=== PATIENT | male | born 1980 | race African-American/Black ===

== ENCOUNTER 2016-10-16 22:04 | Emergency (ER) | payer SELFPAY ==
[~2016-10-16] VITALS: Ht 177.8 cm; Wt 123.0 kg
[~2016-10-16 22:04] MED LIST: GLUCTAB PO; blood pressure pill PO
[2016-10-16 22:16] VITALS: BP 157/86; PULSE 100; RESP 18; TEMP 98.7; O2SAT 96
[2016-10-16] MEDS ORDERED: CLINDAMYCIN INJ 900 MG in SODIUM CHLORIDE 0.9% INJ 100 ML IV ONE ×3 (22:30→22:45)
[2016-10-16] MEDS ORDERED: KETOROLAC TROMETHAMINE 30 MG/ML (IVP) VIAL IVP ONE (22:30)
[2016-10-16] MEDS ORDERED: SODIUM CHLORIDE 0.9% FLUSH 5 ML FLUSH IVF PRN (22:30)
--- NOTE | 2016-10-16 22:36 | PD ---
HPI Chief Complaint: Laceration/Skin Injury Time Seen by Provider: 22:27 Travel History International Travel<30 days: No Contact w/Intl Traveler<30days: No Traveled to known affect area: No History of Present Illness HPI 36-year-old Afro-[place] male presents the emergency department with puncture wound to the right distal little foot, from a nail from working on a roof. Patient states he immediately had pain and swelling between the third and fourth distal metatarsal. Patient sates the pain is gotten progressively worse since that first injury. Patient denies significant bleeding or drainage. He is a type II diabetic, currently not on any medications. He states his last tetanus shot was approximately 2 years ago. He denies any other symptoms or allergies to medications. [facility] Past Medical History Diabetes: Yes Social History Alcohol Use: No Tobacco Use: No Substance Use: No Allergies-Medications (Allergen,Severity, Reaction): Coded Allergies: No Known Allergies (Verified , 10/16/16) Reported Meds & Prescriptions Reported Meds & Active Scripts Active No Active Prescriptions or Reported Medications Review of Systems Except as stated in HPI: all other systems reviewed are Neg General / Constitutional: No: Fever Eyes: No: Visual changes HENT: No: Headaches Cardiovascular: No: Chest Pain or Discomfort Respiratory: No: Shortness of Breath Gastrointestinal: No: Abdominal Pain Genitourinary: No: Dysuria Musculoskeletal: No: Pain Skin: Positive Lesions (single puncture wound with pain and swelling to the right distal medial plantar surface), No Rash Neurologic: No: Weakness Psychiatric: No: Depression Endocrine: No: Polydipsia Hematologic/Lymphatic: No: Easy Bruising Physical Exam Narrative GENERAL: Patient appears in mild to moderate distress. SKIN: Warm and dry. Patient has obvious small puncture wound to the right distal plantar foot between the third and fourth distal metatarsals. No erythema or significant drainage. No active bleeding. HEAD: Atraumatic. Normocephalic. EYES: Pupils equal and round. No scleral icterus. No injection or drainage. ENT: No nasal bleeding or discharge. Mucous membranes pink and moist. Pharynx is clear. NECK: Trachea midline. No JVD. Supple nontender. CARDIOVASCULAR: Regular rate and rhythm. RESPIRATORY: No accessory muscle use. Clear to auscultation. Breath sounds equal bilaterally. MUSCULOSKELETAL: Extremities without clubbing, cyanosis, or edema. No obvious deformities. Patient has pain with palpation to the dorsal and plantar surfaces of the right distal foot. NEUROLOGICAL: Awake and alert. No obvious cranial nerve deficits. Motor grossly within normal limits. Five out of 5 muscle strength in the arms and legs. Normal speech. PSYCHIATRIC: Appropriate mood and affect; insight and judgment normal. Data Data Last Documented VS Vital Signs Date Time Temp Pulse Resp B/P Pulse Ox O2 Delivery O2 Flow Rate FiO2 10/16/16 22:16 98.7 100 18 157/86 96 Orders Foot, Complete (Cak3lix) (10/16/16 22:25) Iv Access Insert/Monitor (10/16/16 22:25) Sodium Chloride 0.9% Flush (Ns Flush) (10/16/16 22:30) Ketorolac Inj (Toradol Inj) (10/16/16 22:30) Levofloxacin (Levaquin) (10/16/16 22:45) Clindamycin Inj (Cleocin Inj) (10/16/16 22:45) MDM Medical Decision Making Medical Screen Exam Complete: Yes Emergency Medical Condition: Yes Differential Diagnosis Right foot puncture wound. Foreign body. Fracture. Cellulitis. Narrative Course Patient is medically stable at time of exam. IV access is obtained patient is given 30 mg Toradol IV as well as 900 mg clindamycin IV. The right foot is soaked in Betadine saline solution. X-ray of the right foot is obtained showing no foreign body, or free air or bony involvement per radiologist. Patient is given 750 mg Levaquin by mouth as well. Patient is given a prescription for Cipro 500 mg twice a day 7 days. Patient is given a prescription for Bactrim DS by mouth twice a day 7 days. Patient is given a prescription for ibuprofen 800 mg 3 times daily with food # 30. Patient should follow-up in 2 days for wound check to ensure no worsening symptoms as he is diabetic. Patient should follow-up sooner with any worsening symptoms as discussed. Diagnosis Primary Impression: Puncture wound of right foot Qualified Code: S91.331A - Puncture wound of right foot, initial encounter Referrals: Primary Care Physician Patient Instructions: General Instructions, Puncture Wound (ED) Additional Instructions: IV access is obtained patient is given 30 mg Toradol IV as well as 900 mg clindamycin IV. The right foot is soaked in Betadine saline solution. X-ray of the right foot is obtained showing no foreign body, or free air or bony involvement per radiologist. Patient is given 750 mg Levaquin by mouth as well. Patient is given a prescription for Cipro 500 mg twice a day 7 days. Patient is given a prescription for Bactrim DS by mouth twice a day 7 days. Patient is given a prescription for ibuprofen 800 mg 3 times daily with food # 30. Patient should follow-up in 2 days for wound check to ensure no worsening symptoms as he is diabetic. Patient should follow-up sooner with any worsening symptoms as discussed. Med/Other Pt SpecificInfo: Prescription(s) given Scripts No Active Prescriptions or Reported Meds Disposition: DISCHARGE HOME Condition: Stable Alex Morales Oct 16, 2016 22:36
[2016-10-16] MEDS ORDERED: LEVOFLOXACIN 750 MG TAB PO ONE (22:45)
--- NOTE | 2016-10-16 22:49 | RADHPO ---
EXAM DATE/TIME: 10/16/2016 22:35 [place] COMPARISON: No previous studies available for comparison. INDICATIONS : Right foot pain from nail. MEDICAL HISTORY : Diabetes mellitus type II. SURGICAL HISTORY : None. ENCOUNTER: Initial ACUITY: 1 day PAIN SCORE: 10/10 LOCATION: Between the 3rd and 4th distal metatarsals. FINDINGS: Three view examination of the right foot demonstrates soft tissue swelling without dislocation, or fr acture. The tarsal bones appear intact. The interphalangeal and metatarsophalangeal joints are int act. The calcaneus is intact. Bony mineralization is normal. CONCLUSION: Soft tissue swelling plantar aspect of the foot. No foreign body or fracture. Ran Hair MD on October 16, 2016 at 22:47 Board Certified Radiologist. This report was verified electronically.
[2016-10-16] MEDS ORDERED: BACT800T5 PO (22:51)
[2016-10-16] MEDS ORDERED: CIPR-9 PO (22:51)
[2016-10-16] MEDS ORDERED: IBUP800T23 PO (22:51)
[2016-10-16 23:38] VITALS: RESP 18
[2016-10-16 23:39] VITALS: BP 175/90
== END 2016-10-16 23:40 | disposition home or self-care (01) ==
LOC: PHEFT 22:04
DX: S91.331A Puncture wound without foreign body, right foot, initial encounter (principal); E11.9 Type 2 diabetes mellitus without complications; W45.0XXA Nail entering through skin, initial encounter; Y93.H3 Activity, building and construction
CPT/HCPCS: 73630; 96365; 96375; 99283; J1885

== ENCOUNTER 2016-11-04 02:26 | Emergency (ER) | payer SELFPAY ==
[~2016-11-04] VITALS: Ht 180.3 cm; Wt 126.7 kg
[~2016-11-04 02:26] MED LIST changes: +BACT800T5 PO; +CIPR-9 PO; -GLUCTAB PO; +IBUP800T23 PO; -blood pressure pill PO
[2016-11-04 02:31] VITALS: BP 158/96; PULSE 86; RESP 18; TEMP 98.3; O2SAT 96
[2016-11-04 04:00] VITALS: BP 175/84; PULSE 90; RESP 18; O2SAT 97
[2016-11-04] MEDS ORDERED: diphenhydrAMINE HCL 50 MG CAP PO ONE (04:00)
[2016-11-04] MEDS ORDERED: FAMOTIDINE 20 MG TAB PO ONE (04:00)
[2016-11-04] MEDS ORDERED: predniSONE 20 MG TAB PO ONE (04:00)
[2016-11-04] MEDS ORDERED: FAMO1TAB37 PO (04:57)
[2016-11-04] MEDS ORDERED: BENA25TA3 PO (04:57)
[2016-11-04] MEDS ORDERED: PRED20 PO (04:57)
--- NOTE | 2016-11-04 04:57 | PD ---
HPI Chief Complaint: Skin Problem Time Seen by Provider: 03:47 Travel History International Travel<30 days: No Contact w/Intl Traveler<30days: No Traveled to known affect area: No History of Present Illness HPI 36-year-old male who presents to emergency room for evaluation of bug bites. Patient reports that he thinks he was bit by a spider yesterday, reports that he noticed some swelling and bumps to his shoulder as well as arm. Patient reports that these problems are very itchy in nature, reports that he can't stop scratching them. Patient with no fevers or chills. Reports a tetanus is up-to-date. PFSH Past Medical History Diabetes: Yes Patient Takes Glucophage: No Diminished Hearing: No Immunizations Current: No Tetanus Vaccination: < 5 Years Influenza Vaccination: No Past Surgical History Surgical History: No Previous Surgery Social History Alcohol Use: No Tobacco Use: Yes Substance Use: No Allergies-Medications (Allergen,Severity, Reaction): Coded Allergies: No Known Allergies (Verified , 11/04/16) Reported Meds & Prescriptions Reported Meds & Active Scripts Active Pepcid (Famotidine) 20 Mg Tab 20 Mg PO BID 5 Days Benadryl Allergy (Diphenhydramine HCl) 25 Mg Tab 25 Mg PO Q6H PRN 5 Days Prednisone 20 Mg Tab 20 Mg PO BID 5 Days Review of Systems General / Constitutional: No: Fever Eyes: No: Visual changes HENT: No: Headaches Cardiovascular: No: Chest Pain or Discomfort Respiratory: No: Shortness of Breath Gastrointestinal: No: Abdominal Pain Genitourinary: No: Dysuria Musculoskeletal: No: Pain Skin: Positive Rash Neurologic: No: Weakness Psychiatric: No: Depression Endocrine: No: Polydipsia Hematologic/Lymphatic: No: Easy Bruising Physical Exam Narrative GENERAL: Well-nourished, well-developed patient. SKIN: Warm and dry. Patient with bug bites to his right shoulder and right arm and right chest wall - there are no signs of infection or underlying cellulitis HEAD: Normocephalic. EYES: No scleral icterus. No injection or drainage. NECK: Supple, trachea midline. No JVD or lymphadenopathy. CARDIOVASCULAR: Regular rate and rhythm without murmurs, gallops, or rubs. RESPIRATORY: Breath sounds equal bilaterally. No accessory muscle use. GASTROINTESTINAL: Abdomen soft, non-tender, nondistended. MUSCULOSKELETAL: No cyanosis, or edema. BACK: Nontender without obvious deformity. No CVA tenderness. Data Data Last Documented VS Vital Signs Date Time Temp Pulse Resp B/P Pulse Ox O2 Delivery O2 Flow Rate FiO2 11/04/16 04:00 90 18 175/84 97 Room Air 11/04/16 02:31 98.3 Orders Prednisone (Deltasone) (11/04/16 04:00) Diphenhydramine (Benadryl) (11/04/16 04:00) Famotidine (Pepcid) (11/04/16 04:00) [facility] Medical Decision Making Medical Screen Exam Complete: Yes Emergency Medical Condition: Yes Interpretation(s) Vital Signs Date Time Temp Pulse Resp B/P Pulse Ox O2 Delivery O2 Flow Rate FiO2 11/04/16 04:00 90 18 175/84 97 Room Air 11/04/16 02:31 98.3 86 18 158/96 96 Differential Diagnosis Bug bites Narrative Course Patient is a 36-year-old male who presents to emergency room for evaluation of bug bites. Patient reports that he thinks he was bit by a spider yesterday, reports that he noticed welts to his right shoulder, right arm and right chest wall. Patient reports that he can't seem to stop scratching his welts, patient here to have these areas evaluated. Patient does appear to have bite broussard to his shoulder, arm and chest wall. Patient has been scratching and has not taking any medications for antipruritics. There are no signs of infections at this time. We'll start patient on steroids, Benadryl as well as Pepcid. Signs and symptoms of when to return to the emergency room was reviewed with patient in detail. Patient's tetanus is up-to-date Diagnosis Primary Impression: Bug bite without infection Qualified Code: W57.XXXA - Bug bite without infection, initial encounter Patient Instructions: General Instructions Additional Instructions: Please return to the emergency room if you develops any signs of infection Please stop with primary care doctor and 2-3 days Return to the emergency room as needed Med/Other Pt SpecificInfo: Prescription(s) given Scripts Famotidine (Pepcid)20 Mg Tab20 Mg PO BID 5 Days Ref 0 Prov:Destinee Paulino DO 11/04/16 Diphenhydramine (Benadryl Allergy)25 Mg Tab25 Mg PO Q6H PRN (ALLERGIES) 5 Days Ref 0 Prov:Destinee Paulino DO 11/04/16 Prednisone 20 Mg Tab20 Mg PO BID 5 Days Ref 0 Prov:Destinee Paulino DO 11/04/16 Disposition: 01 DISCHARGE HOME Condition: Stable Destinee Paulino DO Nov 04, 2016 04:57
[2016-11-04 05:00] VITALS: BP 163/99; PULSE 82; RESP 18; O2SAT 95
== END 2016-11-04 05:15 | disposition home or self-care (01) ==
LOC: PHED 02:26
DX: B99.9 Unspecified infectious disease (principal); E11.9 Type 2 diabetes mellitus without complications; Z72.0 Tobacco use; W57.XXXA Bitten or stung by nonvenomous insect and other nonvenomous arthropods, initial encounter
CPT/HCPCS: 99282; J7512

== ENCOUNTER 2017-01-08 16:55 | Emergency (ER) | payer SELFPAY ==
[~2017-01-08] VITALS: Ht 180.3 cm; Wt 123.0 kg
[~2017-01-08 16:55] MED LIST changes: -BACT800T5 PO; +BENA25TA3 PO; -CIPR-9 PO; +FAMO1TAB37 PO; -IBUP800T23 PO; +PRED20 PO
[2017-01-08 16:56] VITALS: BP 161/93; PULSE 104; RESP 20; TEMP 98.4; O2SAT 99
[2017-01-08] MEDS ORDERED: SODIUM CHLOR 0.9% 1000 ML INJ 1,000 ML IV ONE (17:15)
--- NOTE | 2017-01-08 17:15 | PD ---
HPI Chief Complaint: Diabetic Time Seen by Provider: 17:03 Travel History International Travel<30 days: No Contact w/Intl Traveler<30days: No Traveled to known affect area: No History of Present Illness HPI 36-year-old male complains of elevated blood sugar. Patient has history hypertension and diabetes. Patient states that he was incarcerated between 2001 and 2014. Patient was diagnosed with hypertension and diabetes and was given medications while he was in long-term. Patient was released 2 years ago and has not had any medications since then. PFSH Past Medical History Diabetes: Yes Patient Takes Glucophage: No Diminished Hearing: No Hypertension: Yes Immunizations Current: No Influenza Vaccination: No ?: Not Social History Alcohol Use: No Tobacco Use: No Substance Use: No Allergies-Medications (Allergen,Severity, Reaction): Coded Allergies: No Known Allergies (Verified , 01/08/17) Reported Meds & Prescriptions Reported Meds & Active Scripts Active Pepcid (Famotidine) 20 Mg Tab 20 Mg PO BID 5 Days Benadryl Allergy (Diphenhydramine HCl) 25 Mg Tab 25 Mg PO Q6H PRN 5 Days Prednisone 20 Mg Tab 20 Mg PO BID 5 Days Review of Systems General / Constitutional: No: Fever Eyes: No: Visual changes HENT: No: Headaches Cardiovascular: No: Chest Pain or Discomfort Respiratory: No: Shortness of Breath Gastrointestinal: No: Abdominal Pain Genitourinary: No: Dysuria Musculoskeletal: No: Pain Skin: No Rash Neurologic: No: Weakness Psychiatric: No: Depression Endocrine: No: Polydipsia Hematologic/Lymphatic: No: Easy Bruising Physical Exam Narrative GENERAL: Well-nourished, well-developed patient. SKIN: Focused skin assessment warm/dry. HEAD: Normocephalic. EYES: No scleral icterus. No injection or drainage. NECK: Supple, trachea midline. No JVD or lymphadenopathy. CARDIOVASCULAR: Regular rate and rhythm without murmurs, gallops, or rubs. RESPIRATORY: Breath sounds equal bilaterally. No accessory muscle use. GASTROINTESTINAL: Abdomen soft, non-tender, nondistended. MUSCULOSKELETAL: No cyanosis, or edema. BACK: Nontender without obvious deformity. No CVA tenderness. Neurologic exam normal. Data Data Last Documented VS Vital Signs Date Time Temp Pulse Resp B/P Pulse Ox O2 Delivery O2 Flow Rate FiO2 01/08/17 16:56 98.4 104 20 161/93 99 Orders Complete Blood Count With Diff (01/08/17 17:11) Basic Metabolic Panel (Bmp) (01/08/17 17:11) Beta Hydroxybutyrate (Acetone) (01/08/17 17:11) Iv Access Insert/Monitor (01/08/17 17:11) Sodium Chlor 0.9% 1000 Ml Inj (Ns 1000 M (01/08/17 17:15) Labs Laboratory Tests Test 01/08/17 17:20 White Blood Count 6.8 TH/MM3 Red Blood Count 5.20 MIL/MM3 Hemoglobin 14.7 GM/DL Hematocrit 44.7 % Mean Corpuscular Volume 85.8 FL Mean Corpuscular Hemoglobin 28.3 PG Mean Corpuscular Hemoglobin 32.9 % Concent Red Cell Distribution Width 13.0 % Platelet Count 243 TH/MM3 Mean Platelet Volume 9.7 FL Neutrophils (%) (Auto) 54.3 % Lymphocytes (%) (Auto) 35.3 % Monocytes (%) (Auto) 6.2 % Eosinophils (%) (Auto) 1.7 % Basophils (%) (Auto) 2.5 % Neutrophils # (Auto) 3.7 TH/MM3 Lymphocytes # (Auto) 2.4 TH/MM3 Monocytes # (Auto) 0.4 TH/MM3 Eosinophils # (Auto) 0.1 TH/MM3 Basophils # (Auto) 0.2 TH/MM3 CBC Comment DIFF FINAL Differential Comment Sodium Level 136 MEQ/L Potassium Level 3.7 MEQ/L Chloride Level 101 MEQ/L Carbon Dioxide Level 25.3 MEQ/L Anion Gap 10 MEQ/L Blood Urea Nitrogen 20 MG/DL Creatinine 1.60 MG/DL Estimat Glomerular Filtration 59 ML/MIN Rate Random Glucose 480 MG/DL Calcium Level 8.5 MG/DL B-Hydroxybutyrate 0.12 MMOL/L [facility] Medical Decision Making Medical Screen Exam Complete: Yes Emergency Medical Condition: Yes Interpretation(s) 1824 PM. CBC within normal limit. Bicarbonate 25.3. 1845 PM. Glucose 480. BUN 20. Creatinine 1.6. Beta hydroxybutyrate 0.12. Differential Diagnosis Differential diagnosis including uncontrolled hypertension, hypertensive urgency , hypertensive crisis, hyperglycemia, DKA. Narrative Course 36-year-old male with elevated blood sugar. History of hypertension and diabetes and has not on medications for the past 2 years. 1857 PM. Accu-Chek blood sugar 372. Novolin R, 5 units IV given. Diagnosis Primary Impression: Hyperglycemia Additional Impressions: Renal insufficiency Hypertension Qualified Code: I10 - Essential hypertension Patient Instructions: General Instructions Additional Instructions: Take medications as directed. Follow-up with local physician for blood pressure checked and blood sugar checked. Advised patient strongly to follow up local physician for his medical problem. Med/Other Pt SpecificInfo: Prescription(s) given Scripts Metformin 500 Mg [id number] Mg PO BIDPC #60 TAB Ref 0 With meals Prov:Donny Luna MD 01/08/17 Lisinopril 5 Mg Tab5 Mg PO DAILY #30 TAB Ref 0 Prov:Donny Luna MD 01/08/17 Disposition: 01 DISCHARGE HOME Condition: Stable Donny Luna MD January 08, 2017 17:15
[2017-01-08 17:30] LABS: AUTOMATED NEUTROPHIL # 3.7 TH/MM3 (1.8-7.7); BASOPHIL # 0.2 TH/MM3 (0-0.2); BASOPHIL % 2.5 % (0.0-2.0); EOSINOPHIL # 0.1 TH/MM3 (0-0.4); EOSINOPHIL % 1.7 % (0.0-4.0); HEMATOCRIT 44.7 % (39.0-51.0); HEMO FLAGS DIFF FINAL; LYMPH % 35.3 % (9.0-44.0); LYMPHOCYTE # 2.4 TH/MM3 (1.0-4.8); MEAN CELL VOLUME 85.8 FL (80.0-100.0); MEAN CORPUSCULAR HEMOGLOBIN 28.3 PG (27.0-34.0); MEAN CORPUSCULAR HGB CONC 32.9 % (32.0-36.0); MONO % 6.2 % (0.0-8.0); NEUT % 54.3 % (16.0-70.0); PLATELET COUNT 243 TH/MM3 (150-450); WHITE BLOOD COUNT 6.8 TH/MM3 (4.0-11.0)
[2017-01-08 17:36] LABS: POTASSIUM 3.7 MEQ/L (3.5-5.1)
[2017-01-08 17:39] LABS: BICARBONATE 25.3 MEQ/L (21.0-32.0)
[2017-01-08 18:23] LABS: BETA-HYDROXYBUTYRATE 0.12 MMOL/L (0.00-0.39)
[2017-01-08] MEDS ORDERED: METF500T PO (18:56)
[2017-01-08] MEDS ORDERED: LISI-519 PO (18:56)
[2017-01-08] MEDS ORDERED: INSULIN HUMAN REGULAR 1,000 UNITS/10 ML VIAL IV PUSH ONE (19:00)
[2017-01-08 19:22] VITALS: BP 156/86; PULSE 84; RESP 18; O2SAT 98
--- NOTE | 2017-01-08 19:41 | PD ---
Physical Exam Date Seen by Provider: January 08, 2017 Time Seen by Provider: 19:15 Narrative accepted in transfer of care from Dr Luna Data Data Last Documented VS Vital Signs Date Time Temp Pulse Resp B/P Pulse Ox O2 Delivery O2 Flow Rate FiO2 01/08/17 19:22 84 18 156/86 98 Room Air 01/08/17 16:56 98.4 Orders Complete Blood Count With Diff (01/08/17 17:11) Basic Metabolic Panel (Bmp) (01/08/17 17:11) Beta Hydroxybutyrate (Acetone) (01/08/17 17:11) Iv Access Insert/Monitor (01/08/17 17:11) Sodium Chlor 0.9% 1000 Ml Inj (Ns 1000 M (01/08/17 17:15) Insulin Human Regular Inj (Novolin R Inj (01/08/17 19:00) Labs Laboratory Tests Test 01/08/17 17:20 White Blood Count 6.8 TH/MM3 Red Blood Count 5.20 MIL/MM3 Hemoglobin 14.7 GM/DL Hematocrit 44.7 % Mean Corpuscular Volume 85.8 FL Mean Corpuscular Hemoglobin 28.3 PG Mean Corpuscular Hemoglobin 32.9 % Concent Red Cell Distribution Width 13.0 % Platelet Count 243 TH/MM3 Mean Platelet Volume 9.7 FL Neutrophils (%) (Auto) 54.3 % Lymphocytes (%) (Auto) 35.3 % Monocytes (%) (Auto) 6.2 % Eosinophils (%) (Auto) 1.7 % Basophils (%) (Auto) 2.5 % Neutrophils # (Auto) 3.7 TH/MM3 Lymphocytes # (Auto) 2.4 TH/MM3 Monocytes # (Auto) 0.4 TH/MM3 Eosinophils # (Auto) 0.1 TH/MM3 Basophils # (Auto) 0.2 TH/MM3 CBC Comment DIFF FINAL Differential Comment Sodium Level 136 MEQ/L Potassium Level 3.7 MEQ/L Chloride Level 101 MEQ/L Carbon Dioxide Level 25.3 MEQ/L Anion Gap 10 MEQ/L Blood Urea Nitrogen 20 MG/DL Creatinine 1.60 MG/DL Estimat Glomerular Filtration 59 ML/MIN Rate Random Glucose 480 MG/DL Calcium Level 8.5 MG/DL B-Hydroxybutyrate 0.12 MMOL/L [facility] Medical Record Reviewed: Yes Supervised Visit with SHERRIE: No Differential Diagnosis accepted in transfer of care from Dr Luna; please refer to his dictation Narrative Course accepted in transfer of care from Dr Luna; for follow up of therapeutic response to administered insulin and IVF; 1 hour accu check; plan for discharge to home prescriptions have been provided @ 7:37 at 30 minutes after iv regular insulin administration BGM: 234; will recheck at additional 30 minutes for 1 hour BGM @ 20:35 BGM: 218; patient stable for outpatient management; long discussion with patient regarding his diabetes and hypertension conducted with patient's nurse at bedside. Patient is aware of need for close follow-up with an establishment with a primary care provider has been given [facility] and encouraged to contact case management on Tuesday. Patient is returned the emergency department for any concerns or change in condition. Diagnosis Primary Impression: Hyperglycemia Additional Impressions: Renal insufficiency Hypertension Qualified Code: I10 - Essential hypertension Referrals: [facility] 2 days call for appointment Patient Instructions: Diabetic Hyperglycemia (ED), General Instructions, Meal Planning with Diabetes Exchanges (GEN) Additional Instruction: Take medications as directed. Follow-up with local physician for blood pressure checked and blood sugar checked. Advised patient strongly to follow up local physician for his medical problem. Return to the emergency department for any concerns or change in condition. Med/Other Pt SpecificInfo: Prescription(s) given Scripts Metformin 500 Mg Cbs216 Mg PO BIDPC #60 TAB Ref 0 With meals Prov:Donny Luna MD 01/08/17 Lisinopril 5 Mg Tab5 Mg PO DAILY #30 TAB Ref 0 Prov:Donny Luna MD 01/08/17 Disposition: 01 DISCHARGE HOME Condition: Stable Ashia Angel MD January 08, 2017 19:40
[2017-01-08 20:44] VITALS: BP 156/86; TEMP 98.5
== END 2017-01-08 20:51 | disposition home or self-care (01) ==
LOC: PHED 16:55
DX: E11.65 Type 2 diabetes mellitus with hyperglycemia (principal); I12.9 Hypertensive chronic kidney disease with stage 1 through stage 4 chronic kidney disease, or unspecified chronic kidney disease; N18.9 Chronic kidney disease, unspecified; Z51.81 Encounter for therapeutic drug level monitoring
CPT/HCPCS: 80048; 82010; 85025; 96361; 96374; 99284; J1815; J7030

== ENCOUNTER 2018-02-03 15:01 | Emergency (ER) | payer SELFPAY ==
[~2018-02-03 15:01] MED LIST changes: +LISI-519 PO; +METF500T PO
[2018-02-03 15:03] VITALS: BP 166/84; PULSE 96; RESP 16; TEMP 98.5; O2SAT 97
[2018-02-03] MEDS ORDERED: METF1000 PO (15:15)
[2018-02-03] MEDS ORDERED: ACETAMINOPHEN/HYDROcodone 325 MG/5 MG TAB PO ONE (15:15)
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
[2018-02-03] MEDS ORDERED: HYDR-3516 PO (15:37)
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
== END 2018-02-03 16:18 | disposition home or self-care (01) ==
LOC: PHEFT 15:01
DX: S40.012A Contusion of left shoulder, initial encounter (principal); W19.XXXA Unspecified fall, initial encounter; Y09 Assault by unspecified means; E11.9 Type 2 diabetes mellitus without complications; I10 Essential (primary) hypertension
CPT/HCPCS: 73030; 99283